=== PATIENT | male | born 1945 | race Caucasian/White ===

== ENCOUNTER 2020-07-17 06:49 | Day surgery (SDC) | payer OTHER, BC ==
[~2020-07-17] VITALS: Ht 185.4 cm; Wt 124.2 kg
[2020-07-17] VITALS (26 sets, daily range): BP systolic 139–150; BP diastolic 64–79; PULSE 12–85; TEMP 98.5; O2SAT 96–98
[~2020-07-17 06:49] MED LIST: ASPI325T6 PO; ASPIRIN 32325 MG/TAB PO; CANA100T PO; COLACE 100100 MG/CAP PO; FOLIC ACID 40400 MCG PO; GLUCOPHAGE500 MG/TAB PO; HCTZ 25MG TAB25 MG PO; IRON325 MG PO; LEVEMIR FLEXPEN SQ; LIPITOR 10MG10 MG PO; LIPITOR 40MG TA40 MG PO; LOPRESSOR 225 MG/TAB PO; LOTREL 5/20 CAP1 CAP PO; NORCO 325 MG-7.1 TAB PO; NORVASC 5MG5 MG/TAB PO; NOVOLOG FLEX100 U/ML SQ; PLAVIX 75MG TAB75 MG PO; TYLENOL 325MG325 MG PO; VICTOZA6 MG/ML SC; VITAMIN C500 MG PO
[2020-07-17 07:37] LABS: HEMATOCRIT 37.6 % (42.0-52.0); HEMOGLOBIN 12.1 g/dl (13.5-18.0); MEAN CELL VOLUME 90 fl (80.0-100.0); MEAN CORPUSCULAR HEMOGLOBIN 29 pg (27.0-31.0); MEAN CORPUSCULAR HGB CONC 32 g/dl (33.0-37.0); MEAN PLATELET VOLUME 9.8 fl (7.4-10.4); PLATELET COUNT 308 K/mm3 (130-400); RED BLOOD COUNT 4.18 M/mm3 (4.20-5.60)
[2020-07-17 07:47] LABS: INR 1.1 (0.8-3.0); PROTHROMBIN TIME 11.7 SECONDS (9.7-12.8)
[2020-07-17 07:50] LABS: PARTIAL THROMBOPLASTIN TIME 27.6 SECONDS (26.0-37.0)
[2020-07-17 07:52] LABS: CALCIUM 8.6 mg/dL (8.4-10.2); CREATININE, serum 1.77 (0.66-1.25); POTASSIUM 3.7 mmol/L (3.4-5.0)
[2020-07-17] MEDS ORDERED: NORVASC 10MG10 MG PO (07:59)
[2020-07-17] MEDS ORDERED: ASPIRIN E.C. 8181 MG PO (07:59)
[2020-07-17] MEDS ORDERED: APRESOLINE50 MG PO (08:00)
[2020-07-17] MEDS ORDERED: LOTENSIN20 MG PO (08:00)
[2020-07-17] MEDS ORDERED: LIPITOR 40MG TA40 MG PO (08:00)
[2020-07-17] MEDS ORDERED: PLAVIX 75MG TAB75 MG PO (08:00)
[2020-07-17] MEDS ORDERED: LANTUS100 U/ML SQ (08:01)
[2020-07-17] MEDS ORDERED: HCTZ 25MG TAB25 MG PO (08:01)
[2020-07-17] MEDS ORDERED: HUMULIN N PE100 U/ML SQ (08:04)
[2020-07-17] MEDS ORDERED: OZEMPIC1 MG/0.75 SQ (08:05)
[2020-07-17] MEDS ORDERED: B-121000 MCG PO (08:06)
--- NOTE | 2020-07-17 09:26 | NUR ---
SEE MERGE DOCUMENTATION FOR MEDICATION ADMINISTRATION AND INTRA/POST PROCEDURE SEDATION ASSESSEMENTS.
--- NOTE | 2020-07-17 13:02 | NUR ---
1215- [facility] HERE TO TRANSPORT PATIENT TO [facility]. PT ABLE TO MOVE HIMSELF TO EMS STRETCHER WITHOUT USE OF RIGHT ARM. PT HAS NO COMPLAINTS AT THIS TIME. 1226- EMS LEFT WITH PATIENT. 1228- PT REPORT CALLED TO ADNK MONROY
== END 2020-07-17 12:26 | disposition short-term general hospital (02) ==
LOC: COL.CAR 06:49
PROVIDERS: Internal Medicine Cardiovascular Disease
DX: I25.110 Atherosclerotic heart disease of native coronary artery with unstable angina pectoris (principal); M62.20 Nontraumatic ischemic infarction of muscle, unspecified site; I10 Essential (primary) hypertension; G47.33 Obstructive sleep apnea (adult) (pediatric); G89.29 Other chronic pain; E78.5 Hyperlipidemia, unspecified; E11.9 Type 2 diabetes mellitus without complications; Z20.822 Contact with and (suspected) exposure to COVID-19; Z88.8 Allergy status to other drugs, medicaments and biological substances; Z85.828 Personal history of other malignant neoplasm of skin
CPT/HCPCS: C1725; C1769; C1874; C1887; C1894; C9600; J0583; J1644; J2250; J3010